=== PATIENT | female | born 1990 | race Caucasian/White ===

== ENCOUNTER 2018-10-06 06:44 | Outpatient (CLI) | payer MEDICAID ==
[2018-10-06 07:09] LABS: APPEARANCE,URINE CLEAR; BILIRUBIN,URINE NEGATIVE (NEGATIVE); COLOR,URINE STRAW; GLUCOSE, URINE NEGATIVE (NEGATIVE); KETONES,URINE NEGATIVE (NEGATIVE); LEUKOCYTE ESTERASE,URINE NEGATIVE (NEGATIVE); NITRITE,URINE NEGATIVE (NEGATIVE); PROTEIN,URINE NEGATIVE (NEGATIVE); URINE SPECIFIC GRAVITY 1.003; UROBILINOGEN,URINE NEGATIVE mg/dL (<2.0)
[2018-10-06 07:23] LABS: URINE AMPHETAMINES SCREEN NEGATIVE; URINE BARBITURATES SCREEN NEGATIVE; URINE BENZODIAZEPINES SCREEN NEGATIVE; URINE COCAINE SCREEN NEGATIVE; URINE MARIJUANA (THC) SCREEN NEGATIVE; URINE METHADONE SCREEN NEGATIVE; URINE PHENCYCLIDINE SCREEN NEGATIVE
[2018-10-06] MEDS ORDERED: PENICILLIN G-K 5 MILLION UNIT VIAL ONE (07:25)
[2018-10-06] MEDS ORDERED: PENICILLIN G-K 5 MILLION UNIT VIAL IV ONE (08:02)
--- NOTE | 2018-10-06 11:11 | Non Stress Test Report ---
Non Stress Test Datetime Report Generated by CPN: 10/06/2018 11:11 DEMOGRAPHIC EGA NST: 38.4 INDICATION Indication for Study: Ordered by Provider MONITORING Monitor Explained: Monitor Explained; Test Explained; Patient Verbalized Understanding Time on Monitor: 10/06/2018 06:58 Time off Monitor: 10/06/2018 08:51 NST Duration: 113 NST INTERVENTIONS NST Interventions: PO Hydration Physician Notified NST: N.Gee BABY A: [id number] BABY A Movement : Present Contraction Frequency : Irregular FHR Baseline : 145 Accelerations : 10X10 Decelerations : None Variability : Absent - Undetectable NST Review: Questionable if Meets Criteria for Reactive NST NST Review and Verified By : Yuki Neff RN NST Results: Reactive NST REPORT Report Trigger: Send Report
== END 2018-10-06 10:24 | disposition home or self-care (01) ==
LOC: LC 06:44
PROVIDERS: ATTEND Obstetrics & Gynecology Gynecology
PROC: 4A1HXCZ Monitoring of Products of Conception, Cardiac Rate, External Approach (ICD-10-PCS; principal; 2018-10-06)
DX: O47.1 False labor at or after 37 completed weeks of gestation (principal); Z3A.38 38 weeks gestation of pregnancy
CPT/HCPCS: 59025; 81005; 80307; J2540

== ENCOUNTER 2018-10-06 17:39 | Inpatient (IN) | payer MEDICAID ==
[2018-10-06] MEDS ORDERED: PENICILLIN G-K 5 MILLION UNIT VIAL ONE (17:49)
[2018-10-06] MEDS ORDERED: MISOPROSTOL 0.2 MG TABLET ONE (17:50)
[2018-10-06] MEDS ORDERED: OXYTOCIN/NORMAL SALINE 20 UNIT/1,000 ML RTUINJ ONE (17:50)
[2018-10-06] MEDS ORDERED: LIDOCAINE 1% INJ-PF (10 MG/ML) 30 ML SDV ONE (17:50)
[2018-10-06] MEDS ORDERED: RINGERS SOLUTION,LACTATED 1,000 ML IV ONE (17:57)
[2018-10-06] MEDS ORDERED: RINGERS SOLUTION,LACTATED 1,000 ML IV PRN (17:57)
[2018-10-06] MEDS ORDERED: NALBUPHINE HCL INJ 10 MG/1 ML AMPULE ONE (18:22)
--- NOTE | 2018-10-06 18:22 | Admission Physical ---
Datetime Report Generated by CPN: 10/06/2018 18:22 CURRENT ADMISSION Chief Complaint: Uterine Contractions Indication for Induction: Not Applicable Admit Impression : Term, Intrauterine Admit Plan: Admit to Unit; Initiate Labor Protocol ALLERGIES Medication Allergies: No Medication Allergies: No Known Allergies (10/06/2018) Latex: No Latex Allergies Food Allergies: n/a Environmental Allergies: seasonal allergies OBSTETRICAL HISTORY EDC: 10/16/2018 00:00 : 4 Para: 3 Term: 3 : 0 SAB: 0 IAB: 0 Ectopic: 0 Livin Cesareans: 0 VBACs: 0 Multiple Births: 0 Gestational Diabetes: No Rh Sensitization: No Incompetent Cervix: No JENNIFER: No Infertility: No ART Treatment: No Uterine Anomaly: No IUGR: No Hx Previous C/S: No Macrosomia: No Hx Loss/Stillborn: No PIH: No Hx : No Placenta Previa/Abruption: No Depression/PP Depression: No PTL/PROM: No Post Hemorrhage: No Current Procedures: Ultrasound; NST Obstetrical History Comments: G1- G2- G3- G4- current SEE RECORDS Alcohol: No Marijuana : No Cocaine: No Other Illicit Drugs: No Cigarettes: Current Some Day Smoker. [id number] MEDICAL HISTORY Diabetes: No Blood Transfusion: No Pulmonary Disease (Asthma, TB): No Breast Disease: No Hypertension: No Cable Engineer Surgery: No Heart Disease: No Hosp/Surgery: No Autoimmune Disorder: No Anesthetic Complications: No Kidney Disease: No Abnormal Pap Smear: No Neuro/Epilepsy: No Psychiatric Disorders: No Other Medical Diseases: No Hepatitis/Liver Disease: No Significant Family History: No Varicosities/Phlebitis: No Trauma/Violence : No Thyroid Dysfunction: No INFECTIOUS HISTORY Gonorrhea: No Genital Herpes: No Chlamydia: No Tuberculosis: No Syphilis: No Hepatitis: No HIV/AIDS Exposure: No Rash or Viral Illness: No HPV: No PHYSICAL EXAM General: Normal HEENT: Normal Neurologic: Normal Thyroid: Normal Heart: Normal Lungs: Normal Breast: Deferred Back: Normal Abdomen: Normal Genitourinary Exam: Normal Extremities: Normal DTRs: Normal Pelvic Type: Adequate Vital Signs: Reviewed FETUS A EGA: 38.4 Monitoring: External US Decelerations: None FHR Category: Category I Presentation: Vertex Admit Comment: Delivery at arrival PLANS FOR LABOR AND DELIVERY Labor and Delivery: None Pain Management: Epidural Feeding Preference: Both Benefit of Breast Feed Discussed: Yes Circumcision: N/A INFORMED CONSENT Signature: with User ID: Theresa
[2018-10-06] MEDS ORDERED: ZOLPIDEM TARTRATE 5 MG TABLET PO PRN (18:26)
[2018-10-06] MEDS ORDERED: GLYCERIN/WITCH HAZEL LEAF 1 EACH MED..WIPE TP PRN (18:26)
[2018-10-06] MEDS ORDERED: PROMETHAZINE HCL INJ 25 MG/1 ML VIAL IV PRN (18:26)
[2018-10-06] MEDS ORDERED: DIPHENHYDRAMINE HCL 25 MG CAPSULE PO PRN (18:26)
[2018-10-06] MEDS ORDERED: NA PHOS,M-B/NA PHOS,DI-BA (ADULT) 133 ML ENEMA PR PRN (18:26)
[2018-10-06] MEDS ORDERED: BENZOCAINE/MENTHOL AEROSOL SPRAY 56 ML TOP PRN (18:26)
[2018-10-06] MEDS ORDERED: DIPH/PERTUSS(ACELL)/TETANUS VAC/PF 0.5 ML SYR (>=10YO) IM PRN (18:26)
[2018-10-06] MEDS ORDERED: OXYTOCIN/NORMAL SALINE 20 UNIT/1,000 ML RTUINJ IV PRN (18:26)
[2018-10-06] MEDS ORDERED: PROMETHAZINE HCL 25 MG SUPP.RECT PR PRN (18:26)
[2018-10-06] MEDS ORDERED: PROMETHAZINE HCL 25 MG TABLET PO PRN (18:26)
[2018-10-06] MEDS ORDERED: ACETAMINOPHEN 650 MG SUPP.RECT PR PRN (18:26)
[2018-10-06] MEDS ORDERED: ACETAMINOPHEN WITH CODEINE #3 TABLET PO PRN ×2 (18:26)
[2018-10-06] MEDS ORDERED: MAGNESIUM HYDROXIDE SUSP 30 ML UDCUP PO PRN (18:26)
[2018-10-06] MEDS ORDERED: DIBUCAINE 1% OINTMENT 56 GM TP PRN (18:26)
[2018-10-06] MEDS ORDERED: MEASLES,MUMPS&RUBELLA VACC/PF 0.5 ML VIAL SUBCUT PRN (18:26)
[2018-10-06] MEDS ORDERED: PSEUDOEPHEDRINE HCL 30 MG TABLET PO PRN (18:26)
[2018-10-06] MEDS ORDERED: NALBUPHINE HCL INJ 10 MG/1 ML AMPULE INJ ONE (18:28)
[2018-10-06 18:57] LABS: ABSOLUTE LYMPHOCYTES (AUTO) 1.2 10^3/uL (0.5-4.7); ABSOLUTE MONOCYTES (AUTO) 0.4 10^3/uL (0.1-1.4); ABSOLUTE NEUT (AUTO) 4.8 10^3/uL (1.7-8.2); BASOPHILS % (AUTO) 0.3 % (0-2); EOSINOPHILS % (AUTO) 0.3 % (0-6); HEMATOCRIT 18.9 % (36.0-47.0); LYMPHOCYTES % (AUTO) 18.7 % (13-45); MEAN CORPUSCULAR HEMOGLOBIN 33.7 pg (27.0-33.4); MEAN CORPUSCULAR HGB CONC 33.6 g/dL (32.0-36.0); MEAN CORPUSCULAR VOLUME 100 fl (80-97); MONOCYTES % (AUTO) 5.5 % (3-13); PLATELET COUNT 115 10^3/uL (150-450); RED BLOOD COUNT 1.88 10^6/uL (3.72-5.28); RED CELL DISTRIBUTION WIDTH 13.3 % (11.5-14.0); SEGMENTED NEUTROPHILS % (AUTO) 75.2 % (42-78); TOTAL CELLS COUNTED % (AUTO) 100 %; WHITE BLOOD COUNT 6.4 10^3/uL (4.0-10.5)
[2018-10-06 19:02] LABS: HEMOGLOBIN 6.3 g/dL (12.0-15.5)
--- NOTE | 2018-10-06 19:22 | Warning Signs in Babies ---
VOD Warning Signs Datetime Report Generated by [facility]: 10/06/2018 19:22 VOD#[id number] -Warning Signs in Babies: Needs to be viewed. (10/06/2018 19:15:Desi Conner RN)
[2018-10-06] MEDS ORDERED: NORMAL SALINE 250 ML IV PRN (19:28)
--- NOTE | 2018-10-06 21:13 | Delivery Summary ---
Del Sum A-C Datetime Report Generated by CPN: 10/06/2018 21:12 DELIVERY PERSONNEL DELIVERY PERSONNEL: [id number] Delivery Doctor:: Tegan Robbins MD Labor and Delivery Nurse:: Rita Boucher RNsterile processing tech Nurse:: Abida Neff RN Furniture Reproducer:: Radha Bazzi RN Nuclear Medicine Specialist/CARPENTER APPRENTICE: Alyse Billy, ST Nuclear Medicine Specialist/CARPENTER APPRENTICE: Keynon Woody, SEPHORA PRODUCT CONSULTANT MATERNAL INFORMATION Delivery Anesthesia: None Medications After Delivery: Pitocin Bolus-Please Comment Meds After Delivery Comment: Pitocin 20 units/1000 ml NSS Estimated Blood Loss (ml): 50 Maternal Complications: Precipitous Labor (<3hrs) LABOR SUMMARY EDC: 10/16/2018 00:00 No. Babies in Womb: 1 Attempted: No Labor Anesthesia: None LABOR INFORMATION Reason for Induction: Not Applicable Complete Dilatation: 10/06/2018 18:06 Oxytocin: N/A Group B Beta Strep: positive (Annotations: Data stored by N on behalf of user) Antibiotics # of Doses: 1 Antibiotics Time of Last Dose: 802 Name of Antibiotic Given: Penicillin Steroids Given: None Reason Steroids Not Administered: Not Applicable MEMBRANES Membranes Rupture Method: Spontaneous Rupture of Membranes: 10/06/2018 17:48 Length of Rupture (hr): 0.33 Amniotic Fluid Color: Clear Amniotic Fluid Amount: Moderate Amniotic Fluid Odor: Normal STAGES OF LABOR Stage 2 hr: 0 Stage 2 min: 2 Stage 3 hr: 0 Stage 3 min: 4 VAGINAL DELIVERY Episiotomy: None Laceration #1: None Laceration Extension #1: N/A Laceration #2: None Laceration Extension #2: N/A Laceration #3: None Laceration Extension #3: N/A Laceration Repair: Not Applicable Laceration Repair Note: very small skin breaks not in need of repair Sponge Count Correct: Vaginal Sweep Performed Sharps Count Correct: Yes CSECTION DELIVERY Primary Indication: N/A Secondary Indication: N/A CSection Incidence: N/A Labor: N/A Elective: N/A CSection Incision: N/A BABY A INFORMATION Delivery Date/Time: 10/06/2018 18:08 Method of Delivery: Vaginal Born in Route : No : N/A Forceps: N/A Vacuum Extraction: N/A Shoulder Dystocia : No PRESENTATION/POSITION BABY A Presentation: Cephalic Cephalic Presentation: Vertex Vertex Position: Right Occipital Anterior Breech Presentation: N/A PLACENTA INFORMATION BABY A Placenta Delivery Time : 10/06/2018 18:12 Placenta Method of Delivery: Spontaneous Placenta Status: Delivered SCORES BABY A Heart Rate 1 min: >100 bpm Resp Effort 1 min: Good Cry Reflex Irritability 1 min: Cough or Sneeze or Pulls Away Muscle Tone 1 min: Active Motion Color 1 min: Blue/Pale Resuscitation Effort 1 min: Tactile Stimulation SCORE 1 MIN: 8 Heart Rate 5 min: >100 bpm Resp Effort 5 min: Good Cry Reflex Irritability 5 min: Cough or Sneeze or Pulls Away Muscle Tone 5 min: Active Motion Color 5 min: Body Custer, Extremities Blue Resuscitation Effort 5 min: Tactile Stimulation SCORE 5 MIN: 9 INFORMATION BABY A Gestational Age at Delivery: 38.4 Gestational Status: Early Term- 37- 38.6 Weeks Outcome : Liveborn Condition : Stable Sex: Female IDENTIFICATION BABY A Infant Verification Date/Time: 10/06/2018 18:46 ID Band Number: [id number] Mother's Name Verified: Yes RN Verifying Infant: Karly Camp RNC Additional Verifying Personnel: Abida Neff RNC WEIGHT/LENGTH BABY A Birthweight (gm): 2661 Infant Weight (lb): 5 Weight (oz): 14 Length (in): 19.00 Length (cm): 48.26 CORD INFORMATION BABY A No. Cord Vessels: 3 Nuchal Cord : N/A Cord Blood Taken: Yes-For Eval (Mom's Blood Type - or O+) Suction: None ASSESSMENT BABY A Complications: None Physical Findings at Delivery: Within Normal Limits Infant Respirations: Appears Normal Skin to Skin: Yes Nursing Staff Development Coordinator/ALS Called : No Care By: PARAMJIT Venegas Transferred To: Remains with Mother SIGNATURES Signature: with User ID: [email or web address]
[2018-10-06] MEDS: FAMOTIDINE 20 MG TABLET PO SCH (21:27)
[2018-10-06] MEDS: IBUPROFEN 800 MG TABLET PO SCH (21:27)
[2018-10-06 21:56] LABS: ABSOLUTE BASOPHILS # (AUTO) 0.1 10^3/uL (0.0-0.2); ABSOLUTE LYMPHOCYTES (AUTO) 1.9 10^3/uL (0.5-4.7); ABSOLUTE MONOCYTES (AUTO) 0.6 10^3/uL (0.1-1.4); ABSOLUTE NEUT (AUTO) 13.7 10^3/uL (1.7-8.2); BASOPHILS % (AUTO) 0.4 % (0-2); EOSINOPHILS % (AUTO) 0.3 % (0-6); HEMATOCRIT 35.4 % (36.0-47.0); LYMPHOCYTES % (AUTO) 11.8 % (13-45); MEAN CORPUSCULAR HEMOGLOBIN 33.5 pg (27.0-33.4); MEAN CORPUSCULAR HGB CONC 33.9 g/dL (32.0-36.0); MEAN CORPUSCULAR VOLUME 99 fl (80-97); MONOCYTES % (AUTO) 3.5 % (3-13); PLATELET COUNT 218 10^3/uL (150-450); RED BLOOD COUNT 3.59 10^6/uL (3.72-5.28); RED CELL DISTRIBUTION WIDTH 13.2 % (11.5-14.0); TOTAL CELLS COUNTED % (AUTO) 100 %
[2018-10-06 21:57] LABS: WHITE BLOOD COUNT 16.3 10^3/uL (4.0-10.5)
[2018-10-06] MEDS ORDERED: PENICILLIN G POTASSIUM 2,500,000 UNIT in DEXTROSE 5%-WATER 50 ML IV SCH (21:58)
[2018-10-07] MEDS: IBUPROFEN 800 MG TABLET PO SCH ×3 (05:19→21:08)
[2018-10-07 07:24] LABS: HEMATOCRIT 30.8 % (36.0-47.0); HEMOGLOBIN 10.7 g/dL (12.0-15.5); MEAN CORPUSCULAR HEMOGLOBIN 34.4 pg (27.0-33.4); MEAN CORPUSCULAR HGB CONC 34.9 g/dL (32.0-36.0); MEAN CORPUSCULAR VOLUME 98 fl (80-97); PLATELET COUNT 183 10^3/uL (150-450); RED BLOOD COUNT 3.13 10^6/uL (3.72-5.28); RED CELL DISTRIBUTION WIDTH 12.9 % (11.5-14.0); WHITE BLOOD COUNT 12.5 10^3/uL (4.0-10.5)
--- NOTE | 2018-10-07 10:24 | PDOC PROGRESS REPORT ---
Subjective-OB Progress Note for:: 10/07/18 - PP Day #1, doing well, breast and bottle feeding, A neg, Rubella Immune Physical Exam (OB) Vital Signs: Temp Pulse Resp BP Pulse Ox 97.7 F 64 18 105/66 97 10/07/18 07:31 10/07/18 07:31 10/07/18 07:31 10/07/18 07:31 10/06/18 20:34 Intake & Output 10/06/18 10/07/18 10/08/18 06:59 06:59 06:59 Weight 78 kg - General General Appearance: Appears well, Alert - Lochia Lochia Amount: Scant < 10 ml Lochia Color: Rubra/Red - Abdomen Description: Tender, Soft Hernia Present: No Fundal Description: Firm, Midline Fundal Height: u/u - u/2 - Respiratory Respiratory Status: No respiratory distress - Abdominal Inspection: Normal Distension: No distension - Genitourinary Genitourinary Note: voiding - Extremities Upper extremity: Normal inspection Lower extremities: Normal inspection - Neurological Cognition: Normal Orientation: AAOx4 - Psychological Associated symptoms: Normal affect, Normal mood - Skin Skin Temperature: Warm Skin Moisture: Dry Objective-Diagnostic Laboratory: 10/07/18 06:31 10/06/18 10/06/18 10/06/18 18:37 18:37 20:07 WBC 6.4 Cancelled RBC 1.88 L Cancelled Hgb 6.3 L Cancelled Hct 18.9 L Cancelled MCV 100 H Cancelled MCH 33.7 H Cancelled MCHC 33.6 Cancelled RDW 13.3 Cancelled Plt Count 115 L Cancelled Seg Neutrophils % 75.2 Cancelled Lymphocytes % 18.7 Cancelled Monocytes % 5.5 Cancelled Eosinophils % 0.3 Cancelled Basophils % 0.3 Cancelled Absolute Neutrophils 4.8 Cancelled Absolute Lymphocytes 1.2 Cancelled Absolute Monocytes 0.4 Cancelled Absolute Eosinophils 0.0 Cancelled Absolute Basophils 0.0 Cancelled Blood Type Cancelled Antibody Screen Cancelled 10/06/18 10/06/18 10/07/18 20:07 20:07 06:31 WBC 16.3 H D 12.5 H RBC 3.59 L 3.13 L Hgb 12.0 D 10.7 L Hct 35.4 L 30.8 L MCV 99 H 98 H MCH 33.5 H 34.4 H MCHC 33.9 34.9 RDW 13.2 12.9 Plt Count 218 183 Seg Neutrophils % 84.0 H Lymphocytes % 11.8 L Monocytes % 3.5 Eosinophils % 0.3 Basophils % 0.4 Absolute Neutrophils 13.7 H Absolute Lymphocytes 1.9 Absolute Monocytes 0.6 Absolute Eosinophils 0.0 Absolute Basophils 0.1 Blood Type A NEGATIVE Antibody Screen POSITIVE 10/07/18 06:31 WBC RBC Hgb Hct MCV MCH MCHC RDW Plt Count Seg Neutrophils % Lymphocytes % Monocytes % Eosinophils % Basophils % Absolute Neutrophils Absolute Lymphocytes Absolute Monocytes Absolute Eosinophils Absolute Basophils Blood Type A NEGATIVE Antibody Screen Assessment and Plan(PN) - Assessment and Plan (1) (normal spontaneous vaginal delivery) Is this a current diagnosis for this admission?: Yes - Time Spent with Patient Time with patient: Less than 15 minutes Medications reviewed and adjusted accordingly: Yes - Disposition Anticipated Discharge: Home Within: within 24 hours
[2018-10-07] MEDS: FAMOTIDINE 20 MG TABLET PO SCH ×2 (10:38→21:08)
[2018-10-07] MEDS: PRENATAL VITAMIN W DHA CAPSULE PO SCH (10:38)
[2018-10-07] MEDS: FERROUS SULFATE 325 MG TABLET PO SCH ×2 (10:38→17:58)
[2018-10-07] MEDS: SENNOSIDES/DOCUSATE 8.6-50 MG 1 EACH TABLET PO SCH (10:40)
[2018-10-07] MEDS: DOCUSATE SODIUM 100 MG CAPSULE PO SCH ×2 (10:40→17:58)
[2018-10-08] MEDS: IBUPROFEN 800 MG TABLET PO SCH ×2 (05:29→14:41)
[2018-10-08] MEDS: PRENATAL VITAMIN W DHA CAPSULE PO SCH (09:36)
[2018-10-08] MEDS: FERROUS SULFATE 325 MG TABLET PO SCH ×2 (09:36→17:26)
[2018-10-08] MEDS: FAMOTIDINE 20 MG TABLET PO SCH (09:36)
[2018-10-08] MEDS: DOCUSATE SODIUM 100 MG CAPSULE PO SCH ×2 (09:38→17:25)
[2018-10-08] MEDS: SENNOSIDES/DOCUSATE 8.6-50 MG 1 EACH TABLET PO SCH (09:38)
--- NOTE | 2018-10-08 09:46 | PDOC DISCHARGE SUMMARY ---
Final Diagnosis Discharge Date: 10/08/18 - PP Day #2, doing well, no complaints, A negative, needs Rhogam prior to d/c today, Rubella Immune. - Final Diagnosis (1) (normal spontaneous vaginal delivery) Is this a current diagnosis for this admission?: Yes (2) Normal course Is this a current diagnosis for this admission?: Yes Discharge Data - Discharge Medication Prescriptions: Ibuprofen [Motrin 800 mg Tablet] 800 mg PO Q8 #60 tablet Home Medications: Prenat 115/Iron Fum/Folic/Dss [ 19 Tablet] 1 tab PO DAILY 10/06/18 Ibuprofen [Motrin 800 mg Tablet] 800 mg PO Q8 #60 tablet 10/08/18 Reason(s) for Admission: Onset of Labor Procedures: Ultrasound Intrapartum Procedure(s): Spontaneous Vaginal Delivery - Diagnosis Test Laboratory: Temp Pulse Resp BP Pulse Ox 97.5 F 75 16 115/65 98 10/08/18 07:38 10/08/18 07:38 10/08/18 07:38 10/08/18 07:38 10/08/18 07:38 10/06/18 10/06/18 10/06/18 18:37 20:07 20:07 RBC 1.88 L Cancelled 3.59 L Hgb 6.3 L Cancelled 12.0 D Hct 18.9 L Cancelled 35.4 L 10/07/18 06:31 RBC 3.13 L Hgb 10.7 L Hct 30.8 L - Discharge information/Instructions Discharge Activity: Activity As Tolerated, No Lifting Over 10 Pounds, Pelvic Rest, Slowly Increase Activity Discharge Diet: As Tolerated, Regular Disposition: HOME, SELF-CARE Follow up with: [facility] in: 4, Weeks
[2018-10-08 10:42] VITALS: BP 112/71
== END 2018-10-08 18:31 | disposition home or self-care (01) | DRG 807 ==
LOC: LC 17:39 → EEVIPCON 17:53 → LR 17:53 → 2S 20:36
PROVIDERS: ADMIT Obstetrics & Gynecology; ATTEND Obstetrics & Gynecology
PROC: 10E0XZZ Delivery of Products of Conception, External Approach (ICD-10-PCS; principal; 2018-10-06)
PROC: 4A1HXCZ Monitoring of Products of Conception, Cardiac Rate, External Approach (ICD-10-PCS; 2018-10-06)
PROC: 3E0234Z Introduction of Serum, Toxoid and Vaccine into Muscle, Percutaneous Approach (ICD-10-PCS; 2018-10-07)
DX: O99.824 Streptococcus B carrier state complicating childbirth (principal); Z37.0 Single live birth; O26.893 Other specified pregnancy related conditions, third trimester; O99.334 Smoking (tobacco) complicating childbirth; F17.210 Nicotine dependence, cigarettes, uncomplicated; O62.3 Precipitate labor; Z67.11 Type A blood, Rh negative; Z3A.38 38 weeks gestation of pregnancy
CPT/HCPCS: 36415; 85025; 85027; 85461; 86592; 86850; 86870; 86900; 86901; J2300; J2540; J2590; J2790; J3490